=== PATIENT | female | born 1960 | race African-American/Black ===

== ENCOUNTER 2021-07-05 12:26 | Inpatient (IN) | payer BC, OTHER ==
[2021-07-05] MEDS ORDERED: SODIUM CHLORIDE 0.9% 1,000 ML IV STA (12:54)
[2021-07-05] MEDS ORDERED: MORPHINE SULFATE 2 MG/ML SYRINGE IVP STA (12:54)
[2021-07-05] MEDS ORDERED: METOCLOPRAMIDE 5 MG/ML 2 ML VIAL IVP STA (12:54)
--- NOTE | 2021-07-05 12:59 | ED ---
General Adult HPI <Ángel Riggins - Last Filed: 07/05/21 15:31> - General Source: patient, RN notes reviewed Mode of arrival: wheelchair Limitations: physical limitation - History of Present Illness -: days(s) (5) Location: abdomen (Right lower), right (4) Severity scale (1-10): 10 Quality: sharp Consistency: constant Improves with: none Worsens with: other Associated Symptoms: nausea/vomiting (Palpation) Treatments Prior to Arrival: other (Bactrim and Macrobid) <Audi Levi - Last Filed: 07/05/21 16:22> - General Chief complaint: Abdominal Pain Stated complaint: UTI, side pain - History of Present Illness Initial comments: 61-year-old female, alert and oriented 4, presents to the emergency room with complaints of urinary tract infection that she's been taking Macrobid for with no relief. Patient states that she originally started taking Bactrim at the beginning of the week and she could not tolerate it. States that 18 strict Macrobid yesterday but continues to have the right lower abdominal pain and right flank pain. She today has fever and chills with nausea. (Audi Levi) - Related Data Home Medications Medication Instructions Recorded Confirmed Atorvastatin [Lipitor] 20 mg PO DAILY 07/05/21 07/05/21 Nitrofurantoin Monohyd/M-Cryst 100 mg PO Q12HR 07/05/21 07/05/21 [Macrobid] Allergies Allergy/AdvReac Type Severity Reaction Status Date / Time propoxyphene [From Darvon] Allergy Swelling Verified 07/05/21 15:44 Review of Systems ROS Other: All systems not noted in ROS Statement are negative. <Ángel Riggins - Last Filed: 07/05/21 15:31> ROS Other: All systems not noted in ROS Statement are negative. <Audi Levi - Last Filed: 07/05/21 16:22> ROS Statement: Those systems with pertinent positive or pertinent negative responses have been documented in the HPI. Past Medical History Past Medical History: Hyperlipidemia History of Any Multi-Drug Resistant Organisms: None Reported Past Surgical History: Tubal Ligation Past Psychological History: No Psychological Hx Reported Smoking Status: Never smoker Past Alcohol Use History: None Reported Past Drug Use History: None Reported <Audi Levi - Last Filed: 07/05/21 16:22> General Exam Limitations: physical limitation General appearance: alert, in no apparent distress Head exam: Present: atraumatic, normocephalic, normal inspection Eye exam: Present: normal appearance, PERRL, EOMI. Absent: scleral icterus, conjunctival injection, periorbital swelling ENT exam: Present: normal exam, normal oropharynx, mucous membranes moist Neck exam: Present: normal inspection, full ROM. Absent: tenderness, meningismus, lymphadenopathy, thyromegaly Respiratory exam: Present: normal lung sounds bilaterally. Absent: respiratory distress, wheezes, rales, rhonchi, stridor, chest wall tenderness, accessory muscle use, decreased breath sounds, prolonged expiratory Cardiovascular Exam: Present: regular rate, normal rhythm, normal heart sounds. Absent: systolic murmur, diastolic murmur, rubs, gallop, clicks GI/Abdominal exam: Present: soft, tenderness (Right lower) Rectal exam: Present: deferred Extremities exam: Present: full ROM. Absent: tenderness Back exam: Present: normal inspection, full ROM, CVA tenderness (R). Absent: tenderness, CVA tenderness (L), muscle spasm, paraspinal tenderness, vertebral tenderness Neurological exam: Present: alert, oriented X3, CN II-XII intact Psychiatric exam: Present: normal affect, normal mood Skin exam: Present: warm, dry, intact, normal color. Absent: rash, cyanosis, diaphoretic, erythema, petechiae, pallor, mottled <Audi Levi - Last Filed: 07/05/21 16:22> Course Vital Signs 07/05/21 07/05/21 07/05/21 12:27 13:05 13:16 Temperature 100.5 F H 102.5 F H Pulse Rate 99 86 Respiratory 18 22 Rate Blood Pressure 128/88 141/82 O2 Sat by Pulse 98 98 Oximetry 07/05/21 07/05/21 14:40 15:21 Temperature 101.9 F H Pulse Rate 93 92 Respiratory 22 22 Rate Blood Pressure 140/76 144/78 O2 Sat by Pulse 95 Oximetry Medical Decision Making - Lab Data Result diagrams: 07/05/21 13:00 07/05/21 13:00 <Ángel Riggins - Last Filed: 07/05/21 15:31> - Lab Data Result diagrams: 07/05/21 13:00 07/05/21 13:00 <Audi Levi - Last Filed: 07/05/21 16:22> - Medical Decision Making Patient reevaluated and reexamined by myself, Dr. Riggins. I agree with PAs findings. This includes diagnostic interpretation and treatment plan. Patient states discomfort is improved down to 6/10 at this time. Patient updated on results and plan. Case discussed with Dr. Kumar who does recommend admission. Patient does have fever with evidence of UTI and possible kidney mass. Patient will benefit from IV antibiotics and urology consult. (Ángel Riggins) WBC count is 9.3 with a neutrophil count of 7.9, BUN is 12 creatinine is 1.22. UA is cloudy with 1+ ketones small amount of blood and large leukocyte esterase but negative for nitrites she does have a WBC count of 107 in her urine and she is currently taking Macrobid that she started yesterday. Patient was initially started on Bactrim Thursday but could not tolerate it. Patient will be given a gram of Rocephin here. CT abdomen shows an atrial prominence of the right kidney suspicious for solid neoplasm. There are additional indeterminant hypodensities lesions seen bilaterally. There is a mild prominent pancreatic duct. Mild cystitis. patient remains febrile here in the emergency room with right flank pain. Case discussed with Dr. Riggins (Audi Levi) - Lab Data Lab Results 07/05/21 07/05/21 07/05/21 Range/Units 13:00 13:00 13:00 WBC 9.3 (3.8-10.6) k/uL RBC 3.97 (3.80-5.40) m/uL Hgb 10.5 L (11.4-16.0) gm/dL Hct 32.0 L (34.0-46.0) % MCV 80.6 (80.0-100.0) fL MCH 26.5 (25.0-35.0) pg MCHC 32.9 (31.0-37.0) g/dL RDW 18.1 H (11.5-15.5) % Plt Count 195 (150-450) k/uL MPV 9.1 Neutrophils % 85 % Lymphocytes % 7 % Monocytes % 6 % Eosinophils % 0 % Basophils % 1 % Neutrophils # 7.9 H (1.3-7.7) k/uL Lymphocytes # 0.6 L (1.0-4.8) k/uL Monocytes # 0.6 (0-1.0) k/uL Eosinophils # 0.0 (0-0.7) k/uL Basophils # 0.1 (0-0.2) k/uL Anisocytosis Slight Microcytosis Slight Sodium 136 L (137-145) mmol/L Potassium 4.1 (3.5-5.1) mmol/L Chloride 101 (98-107) mmol/L Carbon Dioxide 23 (22-30) mmol/L Anion Gap 12 mmol/L BUN 12 (7-17) mg/dL Creatinine 1.22 H (0.52-1.04) mg/dL Est GFR (CKD-EPI)AfAm 55 (>60 ml/min/1.73 sqM) Est GFR (CKD-EPI)NonAf 47 (>60 ml/min/1.73 sqM) Glucose 113 H (74-99) mg/dL Plasma Lactic Acid Jesse (0.7-2.0) mmol/L Calcium 10.0 (8.4-10.2) mg/dL Total Bilirubin 0.7 (0.2-1.3) mg/dL AST 30 (14-36) U/L ALT 19 (4-34) U/L Alkaline Phosphatase 115 (38-126) U/L Total Protein 7.1 (6.3-8.2) g/dL Albumin 4.4 (3.5-5.0) g/dL Amylase 50 (30-110) U/L Lipase 30 (23-300) U/L Urine Color Dark Yellow Urine Appearance Cloudy H (Clear) Urine pH 6.0 (5.0-8.0) Ur Specific [place] 1.014 (1.001-1.035) Urine Protein 2+ H (Negative) Urine Glucose (UA) Negative (Negative) Urine Ketones 1+ H (Negative) Urine Blood Small H (Negative) Urine Nitrite Negative (Negative) Urine Bilirubin Negative (Negative) Urine Urobilinogen <2.0 (<2.0) mg/dL Ur Leukocyte Esterase Large H (Negative) Urine RBC 3 (0-5) /hpf Urine WBC 107 H (0-5) /hpf Ur Squamous Epith Cells <1 (0-4) /hpf Urine Mucus Rare H (None) /hpf 08//21 Range/Units 15:08 WBC (3.8-10.6) k/uL RBC (3.80-5.40) m/uL Hgb (11.4-16.0) gm/dL Hct (34.0-46.0) % MCV (80.0-100.0) fL MCH (25.0-35.0) pg MCHC (31.0-37.0) g/dL RDW (11.5-15.5) % Plt Count (150-450) k/uL MPV Neutrophils % % Lymphocytes % % Monocytes % % Eosinophils % % Basophils % % Neutrophils # (1.3-7.7) k/uL Lymphocytes # (1.0-4.8) k/uL Monocytes # (0-1.0) k/uL Eosinophils # (0-0.7) k/uL Basophils # (0-0.2) k/uL Anisocytosis Microcytosis Sodium (137-145) mmol/L Potassium (3.5-5.1) mmol/L Chloride (98-107) mmol/L Carbon Dioxide (22-30) mmol/L Anion Gap mmol/L BUN (7-17) mg/dL Creatinine (0.52-1.04) mg/dL Est GFR (CKD-EPI)AfAm (>60 ml/min/1.73 sqM) Est GFR (CKD-EPI)NonAf (>60 ml/min/1.73 sqM) Glucose (74-99) mg/dL Plasma Lactic Acid Jesse 0.6 L (0.7-2.0) mmol/L Calcium (8.4-10.2) mg/dL Total Bilirubin (0.2-1.3) mg/dL AST (14-36) U/L ALT (4-34) U/L Alkaline Phosphatase (38-126) U/L Total Protein (6.3-8.2) g/dL Albumin (3.5-5.0) g/dL Amylase (30-110) U/L Lipase (23-300) U/L Urine Color Urine Appearance (Clear) Urine pH (5.0-8.0) Ur Specific [place] (1.001-1.035) Urine Protein (Negative) Urine Glucose (UA) (Negative) Urine Ketones (Negative) Urine Blood (Negative) Urine Nitrite (Negative) Urine Bilirubin (Negative) Urine Urobilinogen (<2.0) mg/dL Ur Leukocyte Esterase (Negative) Urine RBC (0-5) /hpf Urine WBC (0-5) /hpf Ur Squamous Epith Cells (0-4) /hpf Urine Mucus (None) /hpf Disposition <Ángel Riggins - Last Filed: 07/05/21 15:31> Decision Date: 07/05/21 Decision Time: 15:05 <Audi Levi - Last Filed: 07/05/21 16:22> Clinical Impression: Urinary tract infection, Right kidney mass Disposition: ADMITTED IP TO THIS HOSP Referrals: Melly De La Fuente MD [Primary Care Provider] - 1-2 days
[2021-07-05] MEDS ORDERED: ACETAMINOPHEN TAB 325 MG TAB PO STA (13:16)
[2021-07-05 13:21] LABS: Albumin 4.4 g/dL (3.5-5.0); Potassium 4.1 mmol/L (3.5-5.1); Total Bilirubin 0.7 mg/dL (0.2-1.3); Total Protein 7.1 g/dL (6.3-8.2)
[2021-07-05 13:23] LABS: Appearance,Urine Cloudy (Clear); Bilirubin,Urine Negative (Negative); Blood,Urine Small (Negative); Color,Urine Dark Yellow; Glucose,Urine (UA) Negative (Negative); Ketones,Urine 1+ (Negative); Leukocyte Esterase,Urine Large (Negative); Mucus,Urine Rare /hpf; Nitrite,Urine Negative (Negative); Protein,Urine 2+ (Negative); RBC,Urine 3 /hpf (0-5); Specific Gravity,Urine 1.014 (1.001-1.035); Squamous Epithelial Cell,Urine <1 /hpf (0-4); Urobilinogen,Urine <2.0 mg/dL (<2.0); WBC,Urine 107 /hpf (0-5)
[2021-07-05 13:25] LABS: Anisocytosis Slight; Basophils # (A) 0.1 k/uL (0-0.2); Basophils % (A) 1 %; Eosinophils % (A) 0 %; HGB 10.5 gm/dL (11.4-16.0); Lymphocytes # (A) 0.6 k/uL (1.0-4.8); Lymphocytes % (A) 7 %; MCH 26.5 pg (25.0-35.0); MCHC 32.9 g/dL (31.0-37.0); MCV 80.6 fL (80.0-100.0); Mean Platelet Volume 9.1; Microcytosis Slight; Monocytes # (A) 0.6 k/uL (0-1.0); Monocytes % (A) 6 %; Neutrophils # (A) 7.9 k/uL (1.3-7.7); Neutrophils % (A) 85 %; Platelet Count 195 k/uL (150-450); RBC 3.97 m/uL (3.80-5.40); RDW 18.1 % (11.5-15.5); WBC 9.3 k/uL (3.8-10.6)
--- NOTE | 2021-07-05 13:59 | CT ---
EXAMINATION TYPE: CT abdomen pelvis wo con DATE OF EXAM: 07/05/2021 COMPARISON: Right lower abdominal pain and flank pain HISTORY: Right lower abdominal pain, flank pain with nausea and potiive UTI CT DLP: 720.6 mGycm Automated exposure control for dose reduction was used. TECHNIQUE: Helical acquisition of images was performed from the lung bases through the pelvis. FINDINGS: LUNG BASES: Subsegmental linear changes at the lung bases most typical of atelectasis. LIVER/GB: No significant abnormality is appreciated. PANCREAS: Limited by lack of contrast. Mild prominence of the pancreatic duct. SPLEEN: No significant abnormality is seen. ADRENALS: No significant abnormality is seen. KIDNEYS: Low-density lesions in the kidney indeterminate by noncontrast technique no obvious hydronep hrosis or nephrolithiasis. There is central prominence the right kidney. A mass could not be excluded the patient is unable to have contrast then consider ultrasound for further evaluation. ADENOPATHY: None visualized. OSSEOUS STRUCTURES: Severe degenerative disc disease L5-S1 facet arthropathy. BOWEL: Bowel gas pattern nonspecific with no obstruction. Appendix normal. OTHER: Surgical clips in the pelvis. Trace amount of fluid not excluded. Mild thickening of the bladd er wall. Aorta of normal caliber with atherosclerotic changes. Small fat-containing periumbilical her ky. IMPRESSION: 1. There is antral prominence of the right kidney. This is suspicious for solid neoplasm. Consider fo llow-up postcontrast CT of the abdomen and pelvis or ultrasound. Additional indeterminate hypodense l esions are seen bilaterally. 2. Mild prominent pancreatic duct. 3. Correlate for mild cystitis.
[2021-07-05] MEDS ORDERED: IBUPROFEN 600 MG TAB PO STA (15:05)
[2021-07-05] MEDS ORDERED: MORPHINE SULFATE 2 MG/ML SYRINGE IVP ONE (15:36)
[2021-07-05] MEDS ORDERED: MORPHINE SULFATE 4 MG/ML SYRINGE IV PRN (16:19)
[2021-07-05] MEDS ORDERED: IBUPROFEN 400 MG TAB PO PRN (16:19)
[2021-07-05] MEDS ORDERED: NALOXONE 0.4 MG/ML 1 ML VIAL IV PRN (16:19)
[2021-07-05] MEDS ORDERED: SODIUM CHLORIDE 0.9% 1,000 ML IV SCH (16:30)
--- NOTE | 2021-07-05 17:43 | P.HPIM ---
History of Present Illness H&P Date: 07/05/21 Chief Complaint: UTI This is a 61-year-old female who presented to the emergency room with persistent UTI. Patient said that her symptoms started on Thursday with burning in her urine and pain in the right lower quadrant radiating to her right flank. She said that she was started on Bactrim but could not tolerate the medication and then was switched to Macrobid. She denies any fevers or chills. No blood in her urine. Patient was evaluated in the ER and computed tomography scan of the abdomen and pelvis showed evidence of right kidney Prominence. Patient Was Admitted to the Hospital for Urology Evaluation. Patient Was Febrile in the ER. She Is Hemodynamically Stable. Review of Systems Review of system: 14 points review of systems were obtained and were negative except to what were mentioned in the HPI. Past Medical History Past Medical History: Hyperlipidemia History of Any Multi-Drug Resistant Organisms: None Reported Past Surgical History: Tubal Ligation Past Psychological History: No Psychological Hx Reported Smoking Status: Never smoker Past Alcohol Use History: None Reported Past Drug Use History: None Reported Medications and Allergies Home Medications Medication Instructions Recorded Confirmed Type Atorvastatin [Lipitor] 20 mg PO DAILY 07/05/21 07/05/21 History Nitrofurantoin Monohyd/M-Cryst 100 mg PO Q12HR 07/05/21 07/05/21 History [Macrobid] Allergies Allergy/AdvReac Type Severity Reaction Status Date / Time latex Allergy Rash/Hives Verified 07/05/21 17:36 propoxyphene [From Darvon] Allergy Swelling Verified 07/05/21 15:44 Physical Exam Vitals: Vital Signs Temp Pulse Resp BP Pulse Ox 07/05/21 17:00 93 22 112/62 96 07/05/21 15:21 92 22 144/78 07/05/21 14:40 101.9 F H 93 22 140/76 95 07/05/21 13:16 102.5 F H 07/05/21 13:05 86 22 141/82 98 07/05/21 12:27 100.5 F H 99 18 128/88 98 Intake and Output 07/05/21 07/05/21 07/05/21 06:59 14:59 22:59 Other: Weight 83.007 kg General: The patient is awake and alert, in no distress Eye: there is normal conjunctiva bilaterally. Neck: The neck is supple, there is no JVD. Cardiovascular: Normal S1-S2, no S3-S4, no murmurs. Respiratory: Lungs clear to auscultation bilaterally Gastrointestinal: Abdomen is soft, nontender Musculoskeletal: There is no pedal edema. Neurological:. Speech is normal. Skin: Skin is warm and dry Results CBC & Chem 7: 07/05/21 13:00 07/05/21 13:00 Labs: Abnormal Lab Results - Last 24 Hours (Table) 07/05/21 07/05/21 07/05/21 Range/Units 13:00 13:00 13:00 Hgb 10.5 L (11.4-16.0) gm/dL Hct 32.0 L (34.0-46.0) % RDW 18.1 H (11.5-15.5) % Neutrophils # 7.9 H (1.3-7.7) k/uL Lymphocytes # 0.6 L (1.0-4.8) k/uL Sodium 136 L (137-145) mmol/L Creatinine 1.22 H (0.52-1.04) mg/dL Glucose 113 H (74-99) mg/dL Plasma Lactic Acid Jesse (0.7-2.0) mmol/L Urine Appearance Cloudy H (Clear) Urine Protein 2+ H (Negative) Urine Ketones 1+ H (Negative) Urine Blood Small H (Negative) Ur Leukocyte Esterase Large H (Negative) Urine WBC 107 H (0-5) /hpf Urine Mucus Rare H (None) /hpf 07/05/21 Range/Units 15:08 Hgb (11.4-16.0) gm/dL Hct (34.0-46.0) % RDW (11.5-15.5) % Neutrophils # (1.3-7.7) k/uL Lymphocytes # (1.0-4.8) k/uL Sodium (137-145) mmol/L Creatinine (0.52-1.04) mg/dL Glucose (74-99) mg/dL Plasma Lactic Acid Jesse 0.6 L (0.7-2.0) mmol/L Urine Appearance (Clear) Urine Protein (Negative) Urine Ketones (Negative) Urine Blood (Negative) Ur Leukocyte Esterase (Negative) Urine WBC (0-5) /hpf Urine Mucus (None) /hpf Assessment and Plan Assessment: 1. Complicated UTI failed outpatient management 2. Sepsis without septic shock 3. Antral prominence of the right kidney suspicious for solid neoplasm 4. Acute kidney injury 5. Hyperlipidemia Today, I reviewed her medication list and lab work results. Continue IV ceftriaxone 2 g daily. Normal saline at 75 mL per hour. Awaiting urine and blood culture. Kidney ultrasound and urology consulted for further evaluation.
[2021-07-05] MEDS: SODIUM CHLORIDE 0.9% 1,000 ML IV SCH (17:52)
--- NOTE | 2021-07-05 18:37 | US ---
EXAMINATION TYPE: US kidneys/renal and bladder DATE OF EXAM: 07/05/2021 COMPARISON: NONE CLINICAL HISTORY: Rule out malignancy. abnormal CT EXAM MEASUREMENTS: Right Kidney: 11.4 x 5.4 x 4.9 cm Left Kidney: 11.5 x 5.4 x 4.7 cm Right Kidney: possible subtle solid area mid = 4.5 x 3.7 x 5.2cm. cystic area = 1.3 x 1.1 x 1.4cm Left Kidney: cystic area upper pole = 2.4 x 2.2 x 2.5cm Bladder: appears wnl Bilateral Jets seen: no IMPRESSION: There is a 13 mm cyst in the right kidney. There is 2.4 cm cyst left kidney. No evidence of solid renal mass. No evidence of renal obstruction. No evidence of a bladder mass.
[2021-07-05] MEDS: NITROFURANTOIN MONOHYD/M-CRYST 100 MG CAP PO SCH (21:25)
[2021-07-06] MEDS: MORPHINE SULFATE 2 MG/ML SYRINGE IV PRN ×4 (00:27→23:44)
[2021-07-06] MEDS: SODIUM CHLORIDE 0.9% 1,000 ML IV SCH (05:21)
--- NOTE | 2021-07-06 07:57 | P.GSCN ---
History of Present Illness Consult date: 07/05/21 History of present illness: 61 yo female admitted for treatment of a urine infection not successfully treated with oral antibiotics. She was treated with bactrim and then macrobid. She came to the er with right flank and abdominal pain. Her ua is inflamed. Her serum wbc was 9000. She had a temperature to 102. SHe had a ct scan without contrast that suggested a possible central right renal mass. This was possibly seen on a subsequent renal us. She ahs been afebrile since she was started on iv antibiotics. The patient symptoms were that of lower urinary tract. She was seen by on Thursday and treated with Bactrim for urine infection. Apparently culture came back and she was switched to Macrobid. In the interim she developed increasing flank pain and fever. She does not have a history of urine infection. She has not had hematuria. She is retired from the [employer]. Afebrile this morning she'll still having some mild discomfort to. Review of Systems All systems: negative - Constitutional Denies fever, Denies weight loss - EENT Eyes: denies blurred vision Ears, nose, mouth and throat: Denies dysphagia - Cardiovascular Denies chest pain, Denies shortness of breath - Respiratory Denies cough, Denies 7 - Gastrointestinal Reports as per HPI - Genitourinary Genitourinary: Denies dysuria, Denies hematuria - Integumentary Denies rash, Denies unusual bruising - Neurological Denies headaches, Denies syncope - Hematologic/Lymphatic Denies easy bleeding, Denies easy bruising Past Medical History Past Medical History: Hyperlipidemia History of Any Multi-Drug Resistant Organisms: None Reported Past Surgical History: Tubal Ligation Past Psychological History: No Psychological Hx Reported Smoking Status: Never smoker Past Alcohol Use History: None Reported Past Drug Use History: None Reported - Past Family History Mother Family Medical History: Cancer Additional Family Medical History / Comment(s): Lung Cancer 2012 Father Family Medical History: CVA/TIA Additional Family Medical History / Comment(s): 2019 Medications and Allergies Home Medications Medication Instructions Recorded Confirmed Type Atorvastatin [Lipitor] 20 mg PO DAILY 07/05/21 07/05/21 History Nitrofurantoin Monohyd/M-Cryst 100 mg PO Q12HR 07/05/21 07/05/21 History [Macrobid] Allergies Allergy/AdvReac Type Severity Reaction Status Date / Time latex Allergy Rash/Hives Verified 07/05/21 17:36 propoxyphene [From Darvon] Allergy Swelling Verified 07/05/21 15:44 Surgical - Exam Vital Signs Temp Pulse Resp BP Pulse Ox 100.5 F H 99 18 128/88 98 07/05/21 12:27 07/05/21 12:27 07/05/21 12:27 07/05/21 12:27 07/05/21 12:27 - General well developed, well nourished, no distress - Eyes PERRL - ENT no hearing loss - Neck trachea midline - Respiratory normal expansion, normal respiratory effort - Cardiovascular Rhythm: regular - Abdomen Abdomen: soft, non tender - Neurologic normal coordination, normal sensation - Musculoskeletal normal posture - Psychiatric oriented to time, oriented to person, oriented to place, speech is normal, memory intact Results - Labs 07/05/21 13:00 07/05/21 13:00 Abnormal Lab Results - Last 24 Hours (Table) 07/05/21 07/05/21 07/05/21 Range/Units 13:00 13:00 13:00 Hgb 10.5 L (11.4-16.0) gm/dL Hct 32.0 L (34.0-46.0) % RDW 18.1 H (11.5-15.5) % Neutrophils # 7.9 H (1.3-7.7) k/uL Lymphocytes # 0.6 L (1.0-4.8) k/uL Sodium 136 L (137-145) mmol/L Creatinine 1.22 H (0.52-1.04) mg/dL Glucose 113 H (74-99) mg/dL Plasma Lactic Acid Jesse (0.7-2.0) mmol/L Urine Appearance Cloudy H (Clear) Urine Protein 2+ H (Negative) Urine Ketones 1+ H (Negative) Urine Blood Small H (Negative) Ur Leukocyte Esterase Large H (Negative) Urine WBC 107 H (0-5) /hpf Urine Mucus Rare H (None) /hpf 07/05/21 Range/Units 15:08 Hgb (11.4-16.0) gm/dL Hct (34.0-46.0) % RDW (11.5-15.5) % Neutrophils # (1.3-7.7) k/uL Lymphocytes # (1.0-4.8) k/uL Sodium (137-145) mmol/L Creatinine (0.52-1.04) mg/dL Glucose (74-99) mg/dL Plasma Lactic Acid Jesse 0.6 L (0.7-2.0) mmol/L Urine Appearance (Clear) Urine Protein (Negative) Urine Ketones (Negative) Urine Blood (Negative) Ur Leukocyte Esterase (Negative) Urine WBC (0-5) /hpf Urine Mucus (None) /hpf Microbiology - Last 24 Hours (Table) 07/05/21 13:00 Urine Culture - Preliminary Urine,Voided Diabetes panel 07/05/21 Range/Units 13:00 Sodium 136 L (137-145) mmol/L Potassium 4.1 (3.5-5.1) mmol/L Chloride 101 (98-107) mmol/L Carbon Dioxide 23 (22-30) mmol/L BUN 12 (7-17) mg/dL Creatinine 1.22 H (0.52-1.04) mg/dL Glucose 113 H (74-99) mg/dL Calcium 10.0 (8.4-10.2) mg/dL AST 30 (14-36) U/L ALT 19 (4-34) U/L Alkaline Phosphatase 115 (38-126) U/L Total Protein 7.1 (6.3-8.2) g/dL Albumin 4.4 (3.5-5.0) g/dL Calcium panel 07/05/21 Range/Units 13:00 Calcium 10.0 (8.4-10.2) mg/dL Albumin 4.4 (3.5-5.0) g/dL Pituitary panel 07/05/21 Range/Units 13:00 Sodium 136 L (137-145) mmol/L Potassium 4.1 (3.5-5.1) mmol/L Chloride 101 (98-107) mmol/L Carbon Dioxide 23 (22-30) mmol/L BUN 12 (7-17) mg/dL Creatinine 1.22 H (0.52-1.04) mg/dL Glucose 113 H (74-99) mg/dL Calcium 10.0 (8.4-10.2) mg/dL Adrenal panel 07/05/21 Range/Units 13:00 Sodium 136 L (137-145) mmol/L Potassium 4.1 (3.5-5.1) mmol/L Chloride 101 (98-107) mmol/L Carbon Dioxide 23 (22-30) mmol/L BUN 12 (7-17) mg/dL Creatinine 1.22 H (0.52-1.04) mg/dL Glucose 113 H (74-99) mg/dL Calcium 10.0 (8.4-10.2) mg/dL Total Bilirubin 0.7 (0.2-1.3) mg/dL AST 30 (14-36) U/L ALT 19 (4-34) U/L Alkaline Phosphatase 115 (38-126) U/L Total Protein 7.1 (6.3-8.2) g/dL Albumin 4.4 (3.5-5.0) g/dL - Imaging CT scan - abdomen: report reviewed, image reviewed CT scan - pelvis: report reviewed, image reviewed US - abdomen: report reviewed, image reviewed Assessment and Plan Assessment: Impression: Acute pyelonephritis. Possible right renal mass. Recommendations: Apparent culture is taken from Dr. Martines's office and this should be identified if possible. Continue with IV antibiotics. Once the culture from Dr. Martines's office his back or in the next 24-48 hours she can be discharged home on an oral antibiotic. Whether the lesion in the right kidney is truly a mass or just focal inflammation is indeterminate. This has been discussed with the patient. She will need a follow-up computed tomography scan with IV contrast to clarify whether this is significant or not. I will follow the patient.
[2021-07-06] MEDS: NITROFURANTOIN MONOHYD/M-CRYST 100 MG CAP PO SCH (08:08)
[2021-07-06] MEDS: ATORVASTATIN 20 MG TAB PO SCH (08:08)
[2021-07-06] MEDS: ACETAMINOPHEN TAB 325 MG TAB PO PRN ×2 (10:17→18:15)
[2021-07-06] MEDS ORDERED: ONDANSETRON 4 MG/2 ML VIAL IVP PRN (12:47)
--- NOTE | 2021-07-06 12:51 | P.PN ---
Subjective Progress Note Date: 07/06/21 Patient is feeling well today. She had another fever of 102.9 this morning. She denies any complaints. She is maintained on IV antibiotic in the form of ceftriaxone 2 g daily. Objective - Vital Signs Vital signs: Vital Signs Temp 98.3 F 07/06/21 11:20 Pulse 82 07/06/21 05:18 Resp 16 07/06/21 05:18 BP 119/70 07/06/21 05:18 Pulse Ox 92 L 07/06/21 05:18 Intake & Output 07/05/21 07/06/21 07/06/21 18:59 06:59 18:59 Weight 83.007 kg Other: Voiding Method Toilet Toilet # Voids 2 - Exam General: The patient is awake and alert, in no distress Eye: there is normal conjunctiva bilaterally. Neck: The neck is supple, there is no JVD. Cardiovascular: Normal S1-S2, no S3-S4, no murmurs. Respiratory: Lungs clear to auscultation bilaterally Gastrointestinal: Abdomen is soft, nontender Musculoskeletal: There is no pedal edema. Neurological:. Speech is normal. Skin: Skin is warm and dry - Labs CBC & Chem 7: 07/05/21 13:00 07/05/21 13:00 Labs: Abnormal Lab Results - Last 24 Hours (Table) 07/05/21 07/05/21 07/05/21 Range/Units 13:00 13:00 13:00 Hgb 10.5 L (11.4-16.0) gm/dL Hct 32.0 L (34.0-46.0) % RDW 18.1 H (11.5-15.5) % Neutrophils # 7.9 H (1.3-7.7) k/uL Lymphocytes # 0.6 L (1.0-4.8) k/uL Sodium 136 L (137-145) mmol/L Creatinine 1.22 H (0.52-1.04) mg/dL Glucose 113 H (74-99) mg/dL Plasma Lactic Acid Jesse (0.7-2.0) mmol/L Urine Appearance Cloudy H (Clear) Urine Protein 2+ H (Negative) Urine Ketones 1+ H (Negative) Urine Blood Small H (Negative) Ur Leukocyte Esterase Large H (Negative) Urine WBC 107 H (0-5) /hpf Urine Mucus Rare H (None) /hpf 07/05/21 Range/Units 15:08 Hgb (11.4-16.0) gm/dL Hct (34.0-46.0) % RDW (11.5-15.5) % Neutrophils # (1.3-7.7) k/uL Lymphocytes # (1.0-4.8) k/uL Sodium (137-145) mmol/L Creatinine (0.52-1.04) mg/dL Glucose (74-99) mg/dL Plasma Lactic Acid Jesse 0.6 L (0.7-2.0) mmol/L Urine Appearance (Clear) Urine Protein (Negative) Urine Ketones (Negative) Urine Blood (Negative) Ur Leukocyte Esterase (Negative) Urine WBC (0-5) /hpf Urine Mucus (None) /hpf Microbiology - Last 24 Hours (Table) 07/05/21 13:00 Urine Culture - Preliminary Urine,Voided Assessment and Plan Assessment: This is a very pleasant 61-year-old female that presented to the emergency room with persistence UTI despite getting antibiotic prescription by her NET MAKING SUPERVISOR. She was evaluated in the ER and admitted to the hospital for further management of her medical problems noted below. 1. Complicated UTI failed outpatient management 2. Sepsis without septic shock 3. Antral prominence of the right kidney suspicious for solid neoplasm: Noted on CT. Ultrasound showed possible septal solid area in the right kidney and bilateral kidney cysts. Patient was seen and evaluated by urology. Plan is to follow up outpatient. 4. Acute kidney injury 5. Hyperlipidemia Today, I reviewed her medication list and lab work results. Continue IV ceftriaxone 2 g daily. Discontinue IV fluids. Awaiting urine and blood culture. Repeat lab work. Patient was seen in the hospital until she is fever free for 24 hours and her blood culture are back
[2021-07-06 13:39] LABS: African American GFR (CKD) 51 (>60 ml/min/1.73 sqM); Anion Gap 8 mmol/L; Blood Urea Nitrogen 12 mg/dL (7-17); Calcium 9.3 mg/dL (8.4-10.2); Carbon Dioxide 23 mmol/L (22-30); Chloride 106 mmol/L (98-107); Glucose 120 mg/dL (74-99); Non-African American GFR(CKD) 44 (>60 ml/min/1.73 sqM); Potassium 4.3 mmol/L (3.5-5.1); Sodium 137 mmol/L (137-145)
[2021-07-07] MEDS: ATORVASTATIN 20 MG TAB PO SCH (08:26)
--- NOTE | 2021-07-07 13:58 | P.PN ---
Subjective Progress Note Date: 07/07/21 Patient is doing fairly well today. She had another high-grade fever last night. Blood culture negative to date. No fevers this morning. Patient denies any abdominal pain or diarrhea. No urinary symptoms. No flulike symptoms. No shortness of breath or cough. Objective - Vital Signs Vital signs: Vital Signs Temp 98.8 F 07/07/21 11:38 Pulse 77 07/07/21 11:38 Resp 17 07/07/21 11:38 BP 125/76 07/07/21 11:38 Pulse Ox 98 07/07/21 11:38 Intake & Output 07/06/21 07/07/21 07/07/21 18:59 06:59 18:59 Intake Total 50 1260 Balance 50 1260 Intake: Intake, IV Titration 50 Amount cefTRIAXone 2 gm In 50 Sodium Chloride 0.9% 50 ml @ 100 mls/hr IVPB Q24HR [facility] Rx#:[id number] Oral 1260 Other: Voiding Method Toilet Toilet Toilet # Voids 2 2 - Exam General: The patient is awake and alert, in no distress Eye: there is normal conjunctiva bilaterally. Neck: The neck is supple, there is no JVD. Cardiovascular: Normal S1-S2, no S3-S4, no murmurs. Respiratory: Lungs clear to auscultation bilaterally Gastrointestinal: Abdomen is soft, nontender Musculoskeletal: There is no pedal edema. Neurological:. Speech is normal. Skin: Skin is warm and dry - Labs CBC & Chem 7: 07/05/21 13:00 07/06/21 12:53 Labs: Microbiology - Last 24 Hours (Table) 07/05/21 13:00 Urine Culture - Final Urine,Voided 07/05/21 15:08 Blood Culture - Preliminary Blood No Growth after 24 hours Assessment and Plan Assessment: This is a very pleasant 61-year-old female that presented to the emergency room with persistence UTI despite getting antibiotic prescription by her PROJECT COACH. She was evaluated in the ER and admitted to the hospital for further management of her medical problems noted below. 1. Complicated UTI failed outpatient management 2. Sepsis without septic shock 3. Antral prominence of the right kidney suspicious for solid neoplasm: Noted on CT. Ultrasound showed possible septal solid area in the right kidney and bilateral kidney cysts. Patient was seen and evaluated by urology. Plan is to follow up outpatient. 4. Acute kidney injury 5. Hyperlipidemia Today, I reviewed her medication list and lab work results. Continue IV cef triaxone 2 g daily. Blood and urine culture negative to date. Repeat lab work in the morning Patient will stay in the hospital until she is fever free for 24 hours and her blood culture are back
[2021-07-07] MEDS: ENOXAPARIN 40 MG/0.4 ML SYRINGE SQ SCH (14:09)
--- NOTE | 2021-07-07 14:43 | XR ---
EXAMINATION TYPE: XR chest 2V DATE OF EXAM: 07/07/2021 COMPARISON: NONE HISTORY: Fever TECHNIQUE: 2 views FINDINGS: Heart and mediastinum are normal. Lungs are clear. Diaphragm is normal. Bony thorax is inta ct. IMPRESSION: Normal chest.
[2021-07-08 05:33] VITALS: BP 138/85; PULSE 71; RESP 16; TEMP 99.1
[2021-07-08] MEDS: ENOXAPARIN 40 MG/0.4 ML SYRINGE SQ SCH (07:50)
[2021-07-08] MEDS: ATORVASTATIN 20 MG TAB PO SCH (07:50)
--- NOTE | 2021-07-08 10:48 | P.DS ---
Providers Date of admission: 07/05/21 15:32 Expected date of discharge: 07/08/21 Attending physician: Hans Lane MD Consults: 07/05/21 16:20 Consult Physician Urgent Consulting Provider: Joseph Davis Consult Reason/Comments: Renal mass, UTI Do you want consulting provider notified?: Already Contacted Primary care physician: Melly De La Fuente MD Hospital Course: This is a very pleasant 61-year-old female that presented to the emergency room with persistence UTI despite getting antibiotic prescription by her FILM INSPECTOR. She was evaluated in the ER and admitted to the hospital for further management of her medical problems noted below. 1. Complicated UTI failed outpatient management 2. Sepsis without septic shock 3. Antral prominence of the right kidney suspicious for solid neoplasm: Noted on CT. Ultrasound showed possible septal solid area in the right kidney and bilateral kidney cysts. Patient was seen and evaluated by urology. Plan is to follow up outpatient. 4. Acute kidney injury 5. Hyperlipidemia Patient was seen, evaluated, and examined by me on the day of discharge. She is feeling fairly well and ready to go home. No abdominal pain. She responded well clinically to IV ceftriaxone. Urine culture are unreliable as patient received 2 different antibiotic as an outpatient prior to admission. Blood and urine culture negative to date. We will finish 5 days course of Keflex. Patient will follow-up with urology as an outpatient for further evaluation for possible right kidney mass. Patient Condition at Discharge: Fair Plan - Discharge Summary Discharge Rx Participant: Yes New Discharge Prescriptions: New Cephalexin [Keflex] 500 mg PO Q6HR 1 Days #20 cap Continue Atorvastatin [Lipitor] 20 mg PO DAILY Discontinued Nitrofurantoin Monohyd/M-Cryst [Macrobid] 100 mg PO Q12HR Discharge Medication List Atorvastatin [Lipitor] 20 mg PO DAILY 07/05/21 [History] Cephalexin [Keflex] 500 mg PO Q6HR 1 Days #20 cap 07/08/21 [Rx] Follow up Appointment(s)/Referral(s): Melly De La Fuente MD [Primary Care Provider] - 1-2 days Joseph Davis MD [STAFF PHYSICIAN] - 1 Week Discharge Disposition: HOME SELF-CARE
== END 2021-07-08 12:14 | disposition home or self-care (01) | DRG 872 ==
LOC: EC 12:26 → 5NMEDONC 15:32
PROVIDERS: ADMIT Internal Medicine; ATTEND Internal Medicine
DX: A41.9 Sepsis, unspecified organism (principal); N10 Acute pyelonephritis; N17.9 Acute kidney failure, unspecified; E78.5 Hyperlipidemia, unspecified; N28.89 Other specified disorders of kidney and ureter; N30.90 Cystitis, unspecified without hematuria; Z79.899 Other long term (current) drug therapy; N28.1 Cyst of kidney, acquired; R11.2 Nausea with vomiting, unspecified
CPT/HCPCS: 36415; 71046; 74176; 76770; 80048; 80053; 81001; 82150; 83605; 83690; 85025; 87040; 87086; 96361; 96365; 96375; 96376; 99285

== ENCOUNTER → 2021-08-01 | Outpatient (CLI) | payer OTHER ==
--- NOTE | 2021-08-01 08:52 | CT ---
EXAMINATION TYPE: CT abdomen wo/w con DATE OF EXAM: 08/01/2021 HISTORY: Renal mass CT DLP: 1364mGycm Automated Exposure Control for Dose Reduction was Utilized. CONTRAST: CT scan of the abdomen is performed with oral and without and with IV Contrast, patient injected with 100 mL of Isovue 300. COMPARISON: Renal ultrasound and CT July 05, 2021 FINDINGS: LUNG BASES: No significant abnormality is appreciated. LIVER/GB: No significant abnormality is appreciated. PANCREAS: No significant abnormality is seen. SPLEEN: No significant abnormality is seen. ADRENALS: No significant abnormality is seen. KIDNEYS: Noncontrast images show no renal calculi bilaterally. Postcontrast images show cortical medu llary uptake and excretion without hydronephrosis seen bilaterally. There is confirmation of slightly lobulated 2.2 cm thin-walled cyst posteriorly and medially upper pole level left kidney image 18 ser ies 10. Right kidney shows overall heterogeneous diminished perfusion particularly upper and mid pole levels. There is confirmation of thin-walled 1.2 cm cyst medially upper pole left kidney axial image 16 series 10 and additional similar size thin walled cyst anteriorly just below this image 18 series 6. Seen better on coronal and sagittal images there is enhancing central mass showing slightly less enhancement than adjacent renal parenchyma measuring 3.4 x 3.7 cm transversely by 3.4 cm 4 reference sagittal image 22 and coronal image 60 worrisome for neoplasm. Mild obstructive fullness to right upp er pole renal calyx noted. Patent draining right renal vein. On delayed images the area is fairly iso dense to the upper and midpole right kidney. BOWEL: The oral contrast does not reach the level of terminal ileum making evaluation distal small clinton boptimal. Mild to moderate fecal prominence in the cecum. LYMPH NODES: No greater than 1cm abdominal lymph nodes are appreciated. OSSEOUS STRUCTURES: No significant abnormality is seen. OTHER: No significant additional abnormality is seen. IMPRESSION: Unusual atypical appearance but likely solid enhancing central 3.7 cm mass in the right k idney worrisome for renal cell carcinoma causing some vascular diminished perfusion to upper and midp ole right kidney due to location and size. Advise surgical referral.
== END | disposition home or self-care (01) ==
LOC: RADCTMAIN 07:12
PROVIDERS: ATTEND Urology
DX: N28.89 Other specified disorders of kidney and ureter (principal)
CPT/HCPCS: 74170; Q9967

== ENCOUNTER → 2021-09-16 | Outpatient (CLI) | payer OTHER ==
--- NOTE | 2021-09-17 06:20 | MR ---
EXAMINATION TYPE: MR kidney wo/w con DATE OF EXAM: 09/16/2021 COMPARISON: HISTORY: Right kidney mass, Abnormal CT CONTRAST: Standard multiplanar, multisequence MRI departmental protocol utilizing 8 mL intravenous Gadavist azucena olinium contrast. Liver has normal size and contour. Bile ducts are not dilated. Spleen is intact. There is no sign of pleural effusion. Stomach is intact. There is no evidence of pancreatic mass. Hepatic duct appears no rmal. There is no retroperitoneal adenopathy. There is no ascites. There is no evidence of adrenal ma ss. There are bilateral simple renal cortical cysts that measure up to 2 cm. There is fairly uniform enha ncement of both kidneys. I do not see evidence of a solid renal mass. Specifically there is no sign o f a mass in the central right kidney. There is fairly uniform cortical enhancement of the kidneys. There is no ascites. There is no sign of a bowel obstruction. There is normal enhancement of the veno us structures. There is normal enhancement of the portal venous system. IMPRESSION: Bilateral simple renal cortical cysts. No suspicious renal mass. The CT scan of August 01, 2021 is reviewed and there is some subtle low attenuation in the right kidney that I think could relate to py elonephritis. There is some enlargement of the right kidney compared to the left on the CT scan of 07/05/2021 that is not evident on this scan today and also consistent with resolving pyelonephritis. Kidn eys have fairly symmetric size on today's exam.
== END | disposition home or self-care (01) ==
LOC: RADMRIMAIN 05:51
PROVIDERS: ATTEND Urology
DX: N28.1 Cyst of kidney, acquired (principal); N28.89 Other specified disorders of kidney and ureter
CPT/HCPCS: 74183; A9585

== ENCOUNTER 2022-04-13 11:47 | Emergency (ER) | payer MEDICARE, OTHER ==
[2022-04-13 12:48] LABS: Anisocytosis Moderate; HCT 27.6 % (34.0-46.0); HGB 8.8 gm/dL (11.4-16.0); Hypochromasia Moderate; MCH 26.1 pg (25.0-35.0); MCHC 31.9 g/dL (31.0-37.0); MCV 81.8 fL (80.0-100.0); Microcytosis Slight; Platelet Count 222 k/uL (150-450); Poikilocytosis Slight; RBC 3.37 m/uL (3.80-5.40); RDW 20.4 % (11.5-15.5); WBC 3.6 k/uL (3.8-10.6)
[2022-04-13 13:15] LABS: INR 0.9 (<1.2)
--- NOTE | 2022-04-13 13:15 | XR ---
EXAMINATION TYPE: XR chest 2V DATE OF EXAM: 04/13/2022 COMPARISON: 07/07/2021 HISTORY: 62-year-old female shortness of breath, difficulty breathing TECHNIQUE: PA and lateral views FINDINGS: Heart limits of normal in size. Aorta and pulmonary vasculature within normal limits. No consolidatio n or pleural effusion. IMPRESSION: No acute process seen.
[2022-04-13 13:16] LABS: Partial Thromboplastin Time 22.2 sec (22.0-30.0); Prothrombin Time 9.7 sec (9.0-12.0)
[2022-04-13 13:18] LABS: Band Neutrophils % 2 %; Eosinophils # (M) 0.11 k/uL (0-0.7); Lymphocytes # (M) 1.01 k/uL (1.0-4.8); Monocytes # (M) 0.22 k/uL (0-1.0); Neutrophils % (M) 62 %; Nucleated Red Blood Cells 1 /100 WBC (0-0); Total Cells Counted 200
[2022-04-13 13:28] LABS: Albumin 4.8 g/dL (3.5-5.0); Calcium 10.2 mg/dL (8.4-10.2); Potassium 3.6 mmol/L (3.5-5.1); Total Bilirubin 0.5 mg/dL (0.2-1.3); Total Protein 7.5 g/dL (6.3-8.2)
--- NOTE | 2022-04-13 13:28 | ED ---
SOB HPI - General Chief Complaint: Shortness of Breath Stated Complaint: PJ,irregular heartbeat Time Seen by Provider: 04/13/22 12:16 Source: patient, RN notes reviewed, old records reviewed Mode of arrival: ambulatory Limitations: no limitations - History of Present Illness Initial Comments: Patient is a 62-year-old female, past medical history of hyperlipidemia, presenting to the emergency Department with complaints of shortness of breath over the past 2-3 weeks. Patient states she's been doing a lot of flying over the past 2 months and has been noticing shortness of breath when she is wheeling her luggage to the airport. She states she flies to [place] at least 4 times the past 2 months. Most recently she returned a few days ago. She denies any chest pain, no cough, no fever. She does have some palpitations and a been intermittent with the shortness of breath. She did recover from a mild case of Covid in August. Patient denies any history of blood clots, no heart failure history. She has no cardiac history at all. She denies any abdominal pain, no nausea or vomiting, no pain in her legs. Patient denies history of COPD, mild asthma. She is no further complaints. - Related Data Home Medications Medication Instructions Recorded Confirmed Atorvastatin [Lipitor] 20 mg PO DAILY 07/05/21 07/05/21 Previous Rx's Medication Instructions Recorded Cephalexin [Keflex] 500 mg PO Q6HR 1 Days #20 cap 07/08/21 Allergies Allergy/AdvReac Type Severity Reaction Status Date / Time latex Allergy Rash/Hives Verified 04/13/22 12:05 propoxyphene [From Darvon] Allergy Swelling Verified 04/13/22 12:05 Review of Systems ROS Statement: Those systems with pertinent positive or pertinent negative responses have been documented in the HPI. ROS Other: All systems not noted in ROS Statement are negative. Past Medical History Past Medical History: Hyperlipidemia History of Any Multi-Drug Resistant Organisms: None Reported Past Surgical History: Tubal Ligation Past Psychological History: No Psychological Hx Reported Smoking Status: Never smoker Past Alcohol Use History: None Reported Past Drug Use History: None Reported - Past Family History Mother Family Medical History: Cancer Additional Family Medical History / Comment(s): Lung Cancer 2012 Father Family Medical History: CVA/TIA Additional Family Medical History / Comment(s): 2019 General Exam - General Exam Comments Initial Comments: GENERAL: Patient is well-developed and well-nourished. Patient is nontoxic and in no acute distress. HEAD: Atraumatic, normocephalic. EYES: Pupils equal round and reactive to light, extraocular movements intact, sclera anicteric, conjunctiva are normal. Eyelids were unremarkable. ENT: Nares patent, oropharynx clear without exudates. Moist mucous membranes. NECK: Normal range of motion, supple without lymphadenopathy or JVD. LUNGS: Unlabored respirations. Breath sounds clear to auscultation bilaterally and equal. No wheezes rales or rhonchi. HEART: Regular rate and rhythm without murmurs, rubs or gallops. ABDOMEN: Soft, nontender, normoactive bowel sounds. No guarding, no rebound. No masses appreciated. MUSCULOSKELETAL: Normal extremities with adequate strength and normal range of motion, no pitting or edema. No clubbing or cyanosis. NEUROLOGICAL: Patient is alert and oriented x 3. Normal speech, normal gait. PSYCH: Normal mood, normal affect. SKIN: Warm, Dry, normal turgor, no rashes or lesions noted. Limitations: no limitations Course Vital Signs 04/13/22 12:03 Temperature 98.5 F Pulse Rate 73 Respiratory 19 Rate Blood Pressure 150/90 O2 Sat by Pulse 98 Oximetry Medical Decision Making - Medical Decision Making Patient is a 62-year-old female here for shortness of breath over the past couple weeks. No history of cardiac disease, PEs. Vital signs are stable upon arrival. Laboratory studies show anemia, hemoglobin is 8.8 today, in June was 10.5. She has no acute bleeding. D-dimer, troponin and BNP are all within normal limits. Patient's chest x-ray showing no acute process. I discussed these findings with the patient. I do believe her shortness of breath could be related to the anemia. I recommended following up with her PCP for further workup, recommendations. Patient is agreeable with this plan of care. She stable for discharge. Return parameters were discussed. Case discussed Dr. Riggins. - Lab Data Result diagrams: 04/13/22 12:36 04/13/22 12:36 Lab Results 04/13/22 04/13/22 04/13/22 Range/Units 12:36 12:36 12:36 WBC 3.6 L (3.8-10.6) k/uL RBC 3.37 L (3.80-5.40) m/uL Hgb 8.8 L (11.4-16.0) gm/dL Hct 27.6 L (34.0-46.0) % MCV 81.8 (80.0-100.0) fL MCH 26.1 (25.0-35.0) pg MCHC 31.9 (31.0-37.0) g/dL RDW 20.4 H (11.5-15.5) % Plt Count 222 (150-450) k/uL MPV 8.0 Neutrophils % (Manual) 62 % Band Neuts % (Manual) 2 % Lymphocytes % (Manual) 28 % Monocytes % (Manual) 6 % Eosinophils % (Manual) 3 % Neutrophils # (Manual) 2.30 (1.3-7.7) k/uL Lymphocytes # (Manual) 1.01 (1.0-4.8) k/uL Monocytes # (Manual) 0.22 (0-1.0) k/uL Eosinophils # (Manual) 0.11 (0-0.7) k/uL Nucleated RBCs 1 H (0-0) /100 WBC Manual Slide Review Performed Hypochromasia Moderate Poikilocytosis Slight Anisocytosis Moderate Microcytosis Slight PT 9.7 (9.0-12.0) sec INR 0.9 (<1.2) APTT 22.2 (22.0-30.0) sec D-Dimer 0.32 (<0.60) mg/L FEU Sodium 142 (137-145) mmol/L Potassium 3.6 (3.5-5.1) mmol/L Chloride 105 (98-107) mmol/L Carbon Dioxide 28 (22-30) mmol/L Anion Gap 9 mmol/L BUN 21 H (7-17) mg/dL Creatinine 1.21 H (0.52-1.04) mg/dL Est GFR (CKD-EPI)AfAm 55 (>60 ml/min/1.73 sqM) Est GFR (CKD-EPI)NonAf 48 (>60 ml/min/1.73 sqM) Glucose 85 (74-99) mg/dL Calcium 10.2 (8.4-10.2) mg/dL Magnesium 2.0 (1.6-2.3) mg/dL Total Bilirubin 0.5 (0.2-1.3) mg/dL AST 28 (14-36) U/L ALT 20 (4-34) U/L Alkaline Phosphatase 85 (38-126) U/L Troponin I (0.000-0.034) ng/mL NT-Pro-B Natriuret Pep pg/mL Total Protein 7.5 (6.3-8.2) g/dL Albumin 4.8 (3.5-5.0) g/dL 04/13/22 04/13/22 Range/Units 12:36 12:36 WBC (3.8-10.6) k/uL RBC (3.80-5.40) m/uL Hgb (11.4-16.0) gm/dL Hct (34.0-46.0) % MCV (80.0-100.0) fL MCH (25.0-35.0) pg MCHC (31.0-37.0) g/dL RDW (11.5-15.5) % Plt Count (150-450) k/uL MPV Neutrophils % (Manual) % Band Neuts % (Manual) % Lymphocytes % (Manual) % Monocytes % (Manual) % Eosinophils % (Manual) % Neutrophils # (Manual) (1.3-7.7) k/uL Lymphocytes # (Manual) (1.0-4.8) k/uL Monocytes # (Manual) (0-1.0) k/uL Eosinophils # (Manual) (0-0.7) k/uL Nucleated RBCs (0-0) /100 WBC Manual Slide Review Hypochromasia Poikilocytosis Anisocytosis Microcytosis PT (9.0-12.0) sec INR (<1.2) APTT (22.0-30.0) sec D-Dimer (<0.60) mg/L FEU Sodium (137-145) mmol/L Potassium (3.5-5.1) mmol/L Chloride (98-107) mmol/L Carbon Dioxide (22-30) mmol/L Anion Gap mmol/L BUN (7-17) mg/dL Creatinine (0.52-1.04) mg/dL Est GFR (CKD-EPI)AfAm (>60 ml/min/1.73 sqM) Est GFR (CKD-EPI)NonAf (>60 ml/min/1.73 sqM) Glucose (74-99) mg/dL Calcium (8.4-10.2) mg/dL Magnesium (1.6-2.3) mg/dL Total Bilirubin (0.2-1.3) mg/dL AST (14-36) U/L ALT (4-34) U/L Alkaline Phosphatase (38-126) U/L Troponin I <0.012 (0.000-0.034) ng/mL NT-Pro-B Natriuret Pep 243 pg/mL Total Protein (6.3-8.2) g/dL Albumin (3.5-5.0) g/dL - EKG Data EKG Comments: Sinus rhythm, normal ECG. Ventricular rate 70, CA interval 168, QTC 371. Disposition Clinical Impression: Anemia, Dyspnea Disposition: HOME SELF-CARE Condition: Stable Instructions (If sedation given, give patient instructions): Anemia (ED) Additional Instructions: Please return to the Emergency Department if symptoms worsen or any other concerns. Recommend following up with primary care physician regarding anemia, further workup/recommendation. Is patient prescribed a controlled substance at d/c from ED?: No Referrals: Melly De La Fuente MD [Primary Care Provider] - 1-2 days Time of Disposition: 13:50
[2022-04-13 17:55] VITALS: BP 147/78; PULSE 74; RESP 18; TEMP 98.2
== END 2022-04-13 14:07 | disposition home or self-care (01) ==
LOC: EC 11:47
DX: R06.00 Dyspnea, unspecified (principal); D64.9 Anemia, unspecified; Z91.040 Latex allergy status; Z88.5 Allergy status to narcotic agent
CPT/HCPCS: 36415; 71046; 80053; 83735; 83880; 84484; 85025; 85379; 85610; 85730; 93005

== ENCOUNTER → 2022-05-21 | Outpatient (CLI) | payer MEDICARE, OTHER ==
--- NOTE | 2022-05-21 11:19 | US ---
EXAMINATION TYPE: US carotid duplex BILAT DATE OF EXAM: 05/21/2022 COMPARISON: NONE CLINICAL HISTORY: R06.09 DYSPNEA. EXAM MEASUREMENTS: RIGHT: Peak Systolic Velocity (PSV) cm/sec ----- Right CCA: 68.6 ----- Right ICA: 98.2 ----- Right ECA: 100.9 ICA/CCA ratio: 1.4 RIGHT: End Diastole cm/sec ----- Right CCA: 25.8 ----- Right ICA: 35.5 ----- Right ECA: 18.9 LEFT: Peak Systolic Velocity (PSV) cm/sec ----- Left CCA: 57.0 ----- Left ICA: 76.4 ----- Left ECA: 79.8 ICA/CCA ratio: 1.3 LEFT: End Diastole cm/sec ----- Left CCA: 22.1 ----- Left ICA: 30.2 ----- Left ECA: 21.6 VERTEBRALS (direction of flow): Right Vertebral: Antegrade Left Vertebral: Antegrade Rhythm: Normal Minimal atherosclerotic changes with no significant velocity increases seen bilaterally. IMPRESSION: There is no evidence for hemodynamically significant stenosis. Criteria for Assigning % of Stenosis / Diameter reduction (Estimation based on the indirect measurements of the internal carotid artery velocities (ICA PSV). 1. Normal (no stenosis)=ICA PSV < 125 cm/s: ratio < 2.0: ICA EDV<40 cm/s. 2. Less than 50% stenosis=ICA PSV < 125 cm/s: ratio < 2.0: ICA EDV<40 cm/s. 3. 50 to 69% stenosis=ICA PSV of 125 to 230 cm/s: ration 2.0 ? 4.0: ICA EDV 40-100 cm/s. 4. Greater than 70% stenosis to near occlusion= ICA PSV > 230 cm/s: ratio > 4.0: ICA EDV > 100 cm/s. 5. Near occlusion= ICA PSV velocities may be low or undetectable: variable ratio and ICA EDV. 6. Total occlusion=unable to detect flow.
== END | disposition home or self-care (01) ==
LOC: RADUSWWP 10:35
PROVIDERS: ATTEND Family Medicine
DX: R06.09 Other forms of dyspnea (principal)
CPT/HCPCS: 93880

== ENCOUNTER → 2022-08-14 | Outpatient (CLI) | payer OTHER ==
[2022-08-15 01:45] LABS: Carbon Dioxide 21.4 mmol/L (20.0-27.5); Potassium 3.8 mmol/L (3.5-5.5)
[2022-08-15 02:43] LABS: Anisocytosis (M) 2+; Basophils # (A) 0.02 X 10*3/uL (0.00-0.10); Basophils % (A) 0.4 %; Elliptocytes 2+; Eosinophils # (A) 0.12 X 10*3/uL (0.04-0.35); Eosinophils % (A) 2.5 %; HCT 28.9 % (37.2-46.3); Hypochromasia (M) 2+; Lymphocytes # (A) 1.64 X 10*3/uL (0.90-5.00); Lymphocytes % (A) 33.6 %; MCH 27.2 pg (27.0-32.0); MCHC 31.1 g/dL (32.0-37.0); MCV 87.3 fL (80.0-97.0); Mean Platelet Volume 10.7 fL (9.5-12.2); Monocytes # (A) 0.22 X 10*3/uL (0.20-1.00); Monocytes % (A) 4.5 %; NRBC Per 100 WBC 5.3 /100 WBCS (0.0-0.0); Neutrophils # (A) 2.83 X 10*3/uL (1.80-7.70); Platelet Count 172 X 10*3/uL (140-440); RBC 3.31 X 10*6/uL (4.10-5.20); RDW 22.6 % (11.5-14.5); WBC 4.88 X 10*3/uL (4.50-10.00)
== END | disposition home or self-care (01) ==
LOC: LABPAT 15:35
PROVIDERS: ATTEND Orthopaedic Surgery
DX: Z01.812 Encounter for preprocedural laboratory examination (principal); M75.41 Impingement syndrome of right shoulder
CPT/HCPCS: 80051; 85025

== ENCOUNTER 2022-08-28 07:05 | Day surgery (SDC) | payer OTHER ==
[2022-08-26 10:33] VITALS: BMI 30.4
--- NOTE | 2022-08-28 03:04 | HP ---
HISTORY AND PHYSICAL DATE OF SURGERY: 08/28/2022. HISTORY OF PRESENT ILLNESS: Patria Ugarte is a 62-year-old patient, seen with progressive right shoulder pain. We discussed options for treatment. She elected to proceed with right shoulder arthroscopy. Consent was obtained. PAST MEDICAL HISTORY: Anemia. PAST SURGICAL HISTORY: Noncontributory. DAILY MEDICATIONS: Atorvastatin. SOCIAL HISTORY: She denies tobacco use. PHYSICAL EVALUATION OF THE RIGHT SHOULDER: Flexion is 90 degrees, abduction is 40 degrees, external rotation is 50 degrees with pain and weakness. Tenderness along the anterolateral acromion and rotator cuff insertion. Impingement is positive at 50. Cross-body adduction is positive. Drop-arm sign is positive. Distal neurovascular exam is intact. RADIOGRAPHS: Radiographs of the right shoulder revealed a type 2 acromion, moderate acromioclavicular joint osteoarthritis, and cystic changes of the tuberosity. MRI of the right shoulder revealed an articular surface rotator cuff tear. IMPRESSION: Right shoulder impingement with rotator cuff tear. PLAN: Right shoulder arthroscopy with subacromial decompression, arthroscopic rotator cuff repair and debridement. MMODL / IJN: [id number] /
[~2022-08-28 07:05] MED LIST: DEXAMETHASONE SOD PHOSPHATE 4 MG/ML 1 ML VIAL IV ONE; HYDROmorphone 0.5 MG/0.5 ML SYRINGE IVP PRN; LACTATED RINGERS 1,000 ML IV SCH; LIDOCAINE 1% (10MG/ML) FOR IV START INTRADERMA PRN; METOCLOPRAMIDE 5 MG/ML 2 ML VIAL IVP PRN; ONDANSETRON 4 MG/2 ML VIAL IVP ONE
[2022-08-28 07:37] VITALS: RESP 16
[2022-08-28 08:08] LABS: Anisocytosis Moderate; HCT 28.6 % (34.0-46.0); HGB 9.1 gm/dL (11.4-16.0); Hypochromasia Moderate; MCH 27.1 pg (25.0-35.0); MCV 84.8 fL (80.0-100.0); Mean Platelet Volume 9.4; Microcytosis Slight; Platelet Count 188 k/uL (150-450); RBC 3.37 m/uL (3.80-5.40); RDW 20.2 % (11.5-15.5)
[2022-08-28] MEDS ORDERED: MIDAZOLAM 2 MG/2 ML VIAL IV ONE (08:22)
[2022-08-28 08:45] LABS: Eosinophils # (M) 0.22 k/uL (0-0.7); Lymphocytes # (M) 1.38 k/uL (1.0-4.8); Monocytes # (M) 0.43 k/uL (0-1.0); Neutrophils # (M) 2.32 k/uL (1.3-7.7); Neutrophils % (M) 54 %; Nucleated Red Blood Cells 5 /100 WBC (0-0); Total Cells Counted 200; WBC 4.3 k/uL (3.8-10.6)
[2022-08-28 08:46] LABS: Ovalocytes Present; Poikilocytosis (M) Present; Tear Drop Cells Present
[2022-08-28] MEDS ORDERED: DEXAMETHASONE SOD PHOSPHATE 4 MG/ML 1 ML VIAL ONE (08:55)
[2022-08-28] MEDS ORDERED: LIDOCAINE 2% INJ 20 MG/ML (2 ML VIAL) ONE (08:55)
[2022-08-28] MEDS ORDERED: PROPOFOL 10 MG/ML 20 ML VIAL IV ONE (08:55)
[2022-08-28] MEDS ORDERED: MIDAZOLAM 2 MG/2 ML VIAL ONE (08:55)
[2022-08-28] MEDS ORDERED: ROPIVACAINE 5 MG/ML 30 ML VIAL ONE (08:55)
[2022-08-28] MEDS ORDERED: GLYCOPYRROLATE 0.2 MG/ML 2 ML VIAL ONE (08:55)
[2022-08-28] MEDS ORDERED: ROCURONIUM 10 MG/ML (5 ML VIAL) IV ONE (08:55)
[2022-08-28] MEDS ORDERED: fentaNYL (PF) 50 MCG/ML 2 ML AMP ONE (08:55)
[2022-08-28] MEDS ORDERED: NEOSTIGMINE 1 MG/ML 10 ML VIAL ONE (08:55)
[2022-08-28] MEDS ORDERED: SUCCINYLCHOLINE CHLORIDE 200 MG/10 ML VIAL IV ONE (08:55)
[2022-08-28 10:27] VITALS: TEMP 96.9
--- NOTE | 2022-08-28 10:28 | P.OP ---
Date of Procedure: 08/28/22 Preoperative Diagnosis: Right shoulder impingement Postoperative Diagnosis: 1. Right shoulder rotator cuff tear 2. Right shoulder impingement Procedure(s) Performed: 1. Right shoulder arthroscopic rotator cuff repair 2. Right shoulder arthroscopic subacromial decompression Implants: 14.75 Arthrex swivel lock anchor Anesthesia: GETA, regional (Interscalene block) Surgeon: Alfonzo Collins Construction Foreman #1: David Salgado Estimated Blood Loss (ml): 6 Pathology: none sent Condition: stable Disposition: PACU Indications for Procedure: 62-year-old patient seen with right shoulder pain consistent with rotator cuff tear. After treatment options were discussed with her, she elected to proceed with right shoulder arthroscopy. Operative Findings: see description of procedure Description of Procedure: Patient underwent an interscalene block by department of anesthesia. The patient was then taken to the operative suite. The patient underwent a general anesthetic by the department of anesthesia. The patient was placed into a lateral position and secured. There was appropriate padding of the bony prominence. Right shoulder was then prepped and draped in normal sterile orthopedic fashion. We placed the extremity in 10 pounds of longitudinal traction. A posterior incision was now made for a posterior working portal site. The trocar and cannula were inserted into the glenohumeral joint. Arthroscopy was initiated. Spinal needle was now inserted anteriorly, to ascertain the anterior working portal site. An incision was now made in that area, a trocar w as inserted followed by a probe. There was mild chondromalacia of the anterior glenoid. The biceps tendon appeared intact. I could clearly see an obvious rotator cuff tendon tear. Instruments were now removed from glenohumeral joint. Utilizing the posterior working portal site, the trocar and cannula were inserted into the subacromial space. Arthroscopy initiated. I made an incision 2 fingerbreadths lateral to the acromion. I introduced my trocar followed by my ArthroCare ablator. I now began ablating thick subacromial bursal tissue, which exposed the undersurface of the anterior acromion. There was diminished subacromial space. There was a very prominent anterior acromion. There was a significant os acrominale component to the acromion. I introduced a motorized bur and performed a decompression. I noted good decompression of subacromial space. That os acromionle appeared stable. I turned my attention to the rotator cuff tendon. There was a large intrasubstance tear along the anterior aspect of the distal supraspinatus. The defect measured about 2 cm. It was torn from the footprint about 3 cm. I abraded the footprint with a motorized bur. With the assistance the Mina DEXTER I pasted 3 [id number] sutures. I now repaired the tendon and [id number] fashion. I left the tails on the lateral sutures. I now punched on the footprint for insertion of an anchor. T he 4 suture limbs from I [id number] repair were now passed through the eyelet of a 4.75 Arthrex swivel lock anchor. I placed anchors into the pre-punch hole. I held it in position while Mina DEXTER tensioned the sutures and deployed the anchor with good fixation noted. All residual suture limbs were now clipped. We had good compression of the tendon along the entire footprint. Instruments now removed from the portal sites. All portal sites were approximated with nylon suture. Sterile dressings were applied followed by a shoulder sling. David DEXTER assisted in this complex case. The patient was awakened, transferred to a bed, and taken to recovery in stable condition.
[2022-08-28] MEDS ORDERED: HYDROcodone/APAP 7.5-325MG 1 EACH TAB ONE (12:55)
[2022-08-28 13:36] VITALS: BP 146/82; PULSE 71
--- NOTE | 2022-08-28 19:34 | P.ANPRN ---
Procedure Note - Anesthesia - Nerve Block Performed Right Interscalene Single Time Out Performed: Yes Date of Procedure: 08/28/22 Procedure Start Time: Procedure Stop Time: Location of Patient: PreOp Indication: Acute Post-Operative Pain, Requested by Surgeon Sedation Type: Sedate with meaningful contact maintained Preparation: Sterile Prep Position: Supine Needle Types: Pajunk Needle Gauge: 21 Ultrasound used to visualize needle placement: Yes Ultrasound used to observe medication spread: Yes Blood Aspirated: No Pain Paresthesia on Injection Noted: No Resistance on Injection: Normal Image Stored and Saved: Yes Events: Uneventful and Well Tolerated (ropi .5% 20cc plus dexamethasone 4mg)
== END 2022-08-28 13:49 | disposition home or self-care (01) ==
LOC: OR 07:05
PROVIDERS: ATTEND Orthopaedic Surgery
DX: M75.101 Unspecified rotator cuff tear or rupture of right shoulder, not specified as traumatic (principal); M25.811 Other specified joint disorders, right shoulder; M94.211 Chondromalacia, right shoulder; E78.5 Hyperlipidemia, unspecified; D64.9 Anemia, unspecified; Z79.899 Other long term (current) drug therapy; Z98.51 Tubal ligation status; Z88.5 Allergy status to narcotic agent; Z91.040 Latex allergy status
CPT/HCPCS: 64415; 76942; 85025; 29826; 29827; C1894; C1713; J2250; J0330; J1100; J2710; J0690; J2405; J3010; J2795; J2704; J2001

== ENCOUNTER → 2022-09-23 | Outpatient (CLI) | payer OTHER ==
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
== END | disposition home or self-care (01) ==
LOC: RADMRIMAIN 16:22
PROVIDERS: ATTEND Neurological Surgery
DX: M48.061 Spinal stenosis, lumbar region without neurogenic claudication (principal); M51.16 Intervertebral disc disorders with radiculopathy, lumbar region
CPT/HCPCS: 72148

== ENCOUNTER → 2023-04-13 | Outpatient (CLI) | payer MEDICARE ==
[2023-04-13 16:18] LABS: % Iron Saturation 29.7 (12.00-45.00)
[2023-04-13 16:48] LABS: Basophils # (A) 0.01 X 10*3/uL (0.00-0.10); Basophils % (A) 0.3 %; Eosinophils # (A) 0.08 X 10*3/uL (0.04-0.35); Eosinophils % (A) 2.2 %; HCT 31.7 % (37.2-46.3); HGB 9.3 g/dL (12.0-15.0); Immature Grans, Automated 1.6 %; Lymphocytes # (A) 1.65 X 10*3/uL (0.90-5.00); Lymphocytes % (A) 44.5 %; MCH 26.3 pg (27.0-32.0); MCHC 29.3 g/dL (32.0-37.0); MCV 89.8 fL (80.0-97.0); Mean Platelet Volume 10.4 fL (9.5-12.2); Monocytes # (A) 0.14 X 10*3/uL (0.20-1.00); Monocytes % (A) 3.8 %; Neutrophils # (A) 1.77 X 10*3/uL (1.80-7.70); Neutrophils % (A) 47.6 %; Platelet Count 184 X 10*3/uL (140-440); RBC 3.53 X 10*6/uL (4.10-5.20); RDW 21.4 % (11.5-14.5); WBC 3.71 X 10*3/uL (4.50-10.00)
== END | disposition home or self-care (01) ==
LOC: LABWHC1 09:07
PROVIDERS: ATTEND Internal Medicine
DX: D50.9 Iron deficiency anemia, unspecified (principal); D64.89 Other specified anemias; E78.00 Pure hypercholesterolemia, unspecified; Z71.3 Dietary counseling and surveillance
CPT/HCPCS: 36415; 82728; 83540; 83550; 85025

== ENCOUNTER → 2023-07-20 | Outpatient (CLI) | payer OTHER, MEDICARE ==
--- NOTE | 2023-07-20 12:45 | MR ---
EXAMINATION TYPE: MR lumbar spine wo con DATE OF EXAM: 07/20/2023 8:21 AM COMPARISON: 09/23/2022. CLINICAL INDICATION: Female, 63 years old with history of M54.50 LOW BACK PAIN, UNSPECIFIED; Lower ba ck pain, RLE radiculopathy. TECHNIQUE: Multi planar, multi sequence imaging was performed utilizing: T1-weighted, T2-weighted, a nd turbo inversion recovery imaging of the lumbar spine. IV Contrast: None. FINDINGS: Alignment: The lumbar vertebral bodies have preserved heights and alignment. Cord: The conus medullaris and the distal spinal cord appear unremarkable with regards to their signa l intensity and morphology. Bones/Discs: Multilevel degeneration changes throughout the spine with Modic endplate changes worse a t L5-S1. Disc space narrowing also worse at L5-S1. Scattered facet joint arthropathy is present throu ghout the spine. No abnormal bony edema on inversion recovery sequences. T12-L1: No evidence of significant spinal canal stenosis or neural foraminal stenosis. L1-L2: No evidence of significant spinal canal stenosis or neural foraminal stenosis. L2-L3: No evidence of significant spinal canal stenosis or neural foraminal stenosis. L3-L4: No evidence of significant spinal canal stenosis or neural foraminal stenosis. L4-L5: Disc bulge and facet joint arthropathy result in mild spinal canal and mild to moderate bilate ral neural foraminal stenosis. Posterior annular fissure noted. L5-S1: The disc is rounded posterior morphology without significant spinal canal stenosis. Facet join t arthropathy with mild to moderate right and moderate left neural foraminal stenosis. Neural foramin al stenosis. No significant spinal canal or neural foraminal stenosis in the remainder of the visualized levels. Other findings: Bilateral high T2 renal cysts. IMPRESSION: 1. Overall stable exam from prior. No definitive evidence of disc herniation or significant spinal c anal stenosis. 2. Mild disc degeneration with associated osteoarthritic changes worse at L5-S1 with moderate left n eural foraminal stenosis..
== END | disposition home or self-care (01) ==
LOC: RADMRIMAIN 07:28
PROVIDERS: ATTEND Orthopaedic Surgery
DX: M51.16 Intervertebral disc disorders with radiculopathy, lumbar region (principal); M47.26 Other spondylosis with radiculopathy, lumbar region; M48.061 Spinal stenosis, lumbar region without neurogenic claudication; M99.73 Connective tissue and disc stenosis of intervertebral foramina of lumbar region
CPT/HCPCS: 72148

== ENCOUNTER 2023-08-05 05:59 | Day surgery (SDC) | payer MEDICARE ==
[2023-07-31 14:33] VITALS: BMI 28.9
[2023-08-05] MEDS ORDERED: LACTATED RINGERS 1,000 ML IV SCH (06:30)
[2023-08-05] MEDS ORDERED: LIDOCAINE 1% (10MG/ML) FOR IV START INTRADERMA PRN (06:30)
[2023-08-05] MEDS ORDERED: PROPOFOL 10 MG/ML 20 ML VIAL IV ONE (07:06)
[2023-08-05 07:07] VITALS: TEMP 97
[2023-08-05 07:58] VITALS: BP 120/87
[2023-08-05 08:05] VITALS: PULSE 68; RESP 16
--- NOTE | 2023-08-05 08:09 | OP ---
OPERATIVE REPORT DATE OF SERVICE : PROCEDURES PERFORMED: Bone marrow biopsy under local and general sedation. PREOPERATIVE DIAGNOSIS: Multiple myeloma. POSTOPERATIVE DIAGNOSIS: Multiple myeloma. DESCRIPTION OF PROCEDURE: After administration of general sedation, Ms. Ugarte was placed in the left lateral decubitus position with the right posterior superior iliac spine palpated. The skin was sterilized with 3 swabs of Betadine and 3 swabs of alcohol following placement of sterile drape. A 1% lidocaine was applied through the periosteum. A 0.3 cm incision was made into the skin with 4-inch Jamshidi needle advanced to the bone marrow. Initial 2 passes at accessing bone marrow were unsuccessful. Following third pass, approximately 17 mL of bone marrow aspirate was obtained. Additional 0.3 cm core biopsy sample was obtained. Pressure bandage was applied. She tolerated the procedure well with less than 1 mL of blood loss. Samples obtained will be sent for flow cytometry FISH, cytogenetics. MMODL / IJN: [id number] /
[2023-08-05 08:33] LABS: Anisocytosis Moderate; HCT 28.7 % (34.0-46.0); HGB 9.1 gm/dL (11.4-16.0); Hypochromasia Moderate; MCH 27.6 pg (25.0-35.0); MCHC 31.9 g/dL (31.0-37.0); MCV 86.4 fL (80.0-100.0); Mean Platelet Volume 10.9; Microcytosis Slight; Platelet Count 173 k/uL (150-450); RBC 3.32 m/uL (3.80-5.40); RDW 20.5 % (11.5-15.5); Reticulocyte % 2.4 % (0.5-2.0)
[2023-08-05 09:03] LABS: Band Neutrophils % 2 %; Neutrophils % (M) 52 %; Nucleated Red Blood Cells 6 /100 WBC (0-0); Total Cells Counted 200
[2023-08-05 09:04] LABS: Eosinophils # (M) 0.08 k/uL (0-0.7); Lymphocytes # (M) 1.68 k/uL (1.0-4.8); Monocytes # (M) 0.21 k/uL (0-1.0); WBC 4.2 k/uL (3.8-10.6)
[2023-08-05 09:11] LABS: Poikilocytosis (M) Present; Tear Drop Cells Present
== END 2023-08-05 08:30 | disposition home or self-care (01) ==
LOC: OR 05:59
PROVIDERS: ATTEND Internal Medicine
DX: C90.00 Multiple myeloma not having achieved remission (principal); D50.9 Iron deficiency anemia, unspecified; J45.909 Unspecified asthma, uncomplicated; E78.00 Pure hypercholesterolemia, unspecified; Z98.51 Tubal ligation status; Z87.891 Personal history of nicotine dependence; Z71.3 Dietary counseling and surveillance
CPT/HCPCS: 85025; 85045; 38222; J2704

== ENCOUNTER → 2024-07-22 | Outpatient (CLI) | payer MEDICARE | END | disposition home or self-care (01) | LOC: LABWHC1 08:59 | PROVIDERS: ATTEND Family Medicine | DX: Z53.9 Procedure and treatment not carried out, unspecified reason (principal) ==